=== PATIENT | female | born 1985 | race Caucasian/White ===

== ENCOUNTER 2017-06-05 05:41 | Day surgery (SDC) | payer MEDICAID ==
[2017-06-03 12:11] LABS: HEMATOCRIT 37.9 % (36.0-48.0); HEMOGLOBIN 12.6 g/dL (12-16); MCH 33.2 pg (26.0-34.0); MCHC 33.2 g/dL (31.0-37.0); MEAN PLATELET VOLUME 10.3 fL (7.4-10.4); RBC 3.79 10x6/uL (4.00-5.40); RDW 12.4 % (11.5-14.5); WBC 4.8 10x3/uL (4.8-10.8)
[~2017-06-05 05:41] MED LIST: KLONOPIN1 MG PO; TYLENOL W/CODEI1 TAB PO
[2017-06-05 10:22] VITALS: BP 117/70; BMI 22.3
[2017-06-05 10:33] LABS: HCG URINE NEGATIVE (NEGATIVE)
[2017-06-05] MEDS ORDERED: HYDROCODONE-APA1 TAB PO (14:53)
--- NOTE | 2017-06-05 16:57 | NUR ---
1630--IV DC'D, PT UP TO DRESS. GUERO COTTON 2930--DISCHARGE INSTRUCTIONS GIVEN, PT VERBALIZES UNDERSTANIDNG. PT OFF UNIT VIA WC. GUERO COTTON
--- NOTE | 2017-06-16 14:00 | OP ---
PATIENT NAME: ESTEFANÍA AMAYA MEDICAL RECORD: [id number] :87 LOCATION:D.OPS ADMISSION DATE: SURGEON: NADIA BENDER, DANIEL PEARL DATE OF OPERATION: 06/05/2017 PREOPERATIVE DIAGNOSES: SLAP lesion of the left shoulder with impingement syndrome and acromioclavicular arthritis. POSTOPERATIVE DIAGNOSES: SLAP lesion of the left shoulder with impingement syndrome and acromioclavicular arthritis. PROCEDURES: 1. Arthroscopic SLAP repair. 2. Arthroscopic distal clavicle excision done through separate incision -- 1 cm. 3. Arthroscopic subacromial decompression, acromioplasty, and bursectomy. SURGEON: Daniel Zuniga MD ANESTHESIA: General. INTRAOPERATIVE COMPLICATIONS: None. SUMMARY OF PATHOLOGIC FINDINGS: The patient had a bicipital labral complex lesion consistent with preoperative diagnosis. Furthermore, the patient had impingement syndrome as well as acromioclavicular arthritis. OPERATIVE SUMMARY IN DETAIL: After obtaining the appropriate preoperative orthopedic surgery consent as well as anesthetic consultation, evaluation and clearance, the patient was brought to the operating room and placed on the table in supine position. After general laryngeal mask airway was administered, the patient was placed in a right lateral decubitus position. All pressure points were well padded. Left upper extremity and shoulder were then prepped and draped in a routine sterile fashion. The arm was held in the Arthrex traction boom at 30 degrees of forward flexion, 30 degrees of abduction and 10 pounds of traction laterally. Arthroscopy was established in the glenohumeral joint from posterior portal. Anterior portal was established in the anterior safe interval. Diagnostic arthroscopy did reveal the patient had the bicipital labral complex tear as outlined. At this point, the area of glenoid underneath the bicipital labral junction as well as slightly anterior to that were debrided and decorticated in preparations for labral tear repair. Arthrex 2.9 short PushLocks were utilized for this labral repair using a labral tape. Lasso was used to pass the double looped labrum and then drill was done under direct arthroscopic visualization. The labral anchors were placed at the 3 o'clock, 1:30, and 11 o'clock position resulted in good reapproximation of the labrum. Having completed this, attention was turned to the subacromial space. While in the subacromial space, the [place] system was used to denude the undersurface of the acromion of all soft tissue elements. A 5-0 barrel bur was used to perform acromioplasty at the level of acromioclavicular joint and through a separate arthroscopic anterior incision, the distal clavicle was excised using the 5-0 barrel bur for approximately 1 cm. Having completed this, all of the residual bursa was taken down from the superior aspect of the rotator cuff that showed no evidence of significant tearing. Having completed this, arthroscopy portals were closed in routine interrupted fashion using 4-0 Prolene. Sterile dressings were applied. The patient was awakened, taken to recovery in stable condition. OPERATIVE REPORT [id number] ESTEFANÍA AMAYA All final needle and sponge counts were correct. TRANSINT:[id number] Voice Confirmation ID: [id number] DOCUMENT ID: [id number] NADIA BENDER, DANIEL PEARL at 1400 CC: [id number] DICTATION DATE: 06/13/17 110 THERAPEUTIC RIDING INSTRUCTOR: 06/13/17 1134 [facility] 06/05/17 [id number] [place] [address]
== END 2017-06-05 16:55 | disposition home or self-care (01) ==
LOC: D.OPS 05:41 → D.PAN 15:00 → D.OPS 15:00
PROVIDERS: Anesthesiology; Orthopaedic Surgery
DX: S43.432A Superior glenoid labrum lesion of left shoulder, initial encounter (principal); M75.42 Impingement syndrome of left shoulder; M19.012 Primary osteoarthritis, left shoulder; Z01.812 Encounter for preprocedural laboratory examination